=== PATIENT | male | born 1950 | race Caucasian/White ===

== ENCOUNTER 2019-07-23 09:12 | Emergency (ER) | payer OTHER, MEDICAID ==
[~2019-07-23] VITALS: Ht 177.8 cm; Wt 80.0 kg
[2019-07-23] MEDS ORDERED: ALBUTEROL (0.083%) 2.5MG/3ML NEB HHN STA (11:30)
[2019-07-23] MEDS ORDERED: DEXAMETHASONE 4MG TABLET PO ONE (11:30)
[2019-07-23 12:11] LABS: HEMATOCRIT. 38.4 % (42.0-52.0); HEMOGLOBIN. 12.9 g/dL (14.0-18.0); MEAN CORPUSCULAR HEMOGLOBIN 30.4 pg (28.0-32.0); MEAN CORPUSCULAR VOLUME 90.2 fL (80.0-94.0); MEAN PLATELET VOLUME 10.2 fl (7.4-10.4); PLATELET 115 x1000/uL (130-400); RED BLOOD CELL COUNT 4.26 mill/uL (4.7-6.1); RED CELL DISTRIBUTION WIDTH 14.9 % (11.6-14.6)
[2019-07-23 12:17] LABS: CHLORIDE 101 mEq/L (98-107)
[2019-07-23 12:32] LABS: PLATELET ESTIMATE SLIGHTLY DECREASED
[2019-07-23 13:00] VITALS: BP 110/60
== END 2019-07-23 13:01 | disposition home or self-care (01) ==
LOC: ER 09:12
DX: J44.1 Chronic obstructive pulmonary disease with (acute) exacerbation (principal)
CPT/HCPCS: 36415; 71045; 80053; 84484; 85025; 93005; 94640; 99284; J7611; J8540